=== PATIENT | male | born 1985 | race Caucasian/White ===

== ENCOUNTER 2020-01-07 10:09 | Emergency (ER) | payer SELFPAY ==
--- NOTE | 2020-01-07 10:30 | TELE ---
HPI Do you have fever,cough or shortness of breath?: No - General Reason For Visit: COVID 19 TESTING History Source: Patient Exam Limitations: No Limitations - History of Present Illness 01/07/20 10:25 Patient is a 34-year-old male with no past medical history who participated in a virtual urgent care visit for routine COVID testing. He states he would like to be tested for his own peace of mind. He denies any symptoms at this time. He denies any recent travel outside of the [facility] within the last 30 days or outside of [facility] within the last 15 days. The patient denies any medical history of allergies to medications. Of note: This virtual urgent care visit was done via audio only as the patient was having difficulty accessing the video portion of the visit. Past History - Medical History Allergies/Adverse Reactions: Allergies Allergy/AdvReac Type Severity Reaction Status Date / Time No Known Allergies Allergy Verified 04/04/15 12:54 Home Medications: Ambulatory Orders Acetaminophen/Caffeine/Butalb [Fioricet -] 1 tab PO Q4H PRN #15 tablet 04/04/15 Naproxen Sodium [Aleve] 660 mg PO BID 04/04/15 - Psycho-Social/Smoking History Smoking History: Current every day smoker Have you smoked in the past 12 months: Yes Number of Cigarettes Smoked Daily: 2 'Breaking Loose' booklet given: 04/04/15 Review of Systems - Review of Systems Comments:: 01/07/20 10:27 - Review of Systems Able to Perform ROS?: Yes Constitutional: No: Fever, Chills, Loss of Appetite, Night Sweats, Weakness; positive: Routine COVID testing HEENTM: No: Eye Pain, Vision changes, Ear Pain, Throat Pain, Throat Swelling, Mouth Pain, Difficulty Swallowing Respiratory: No: Cough, Shortness of Breath, Wheezing, Sputum Production Cardiac (ROS): No: Chest Pain, Chest Tightness, Palpitations, Irregular Heart Beat, Edema ABD/GI: No: Nausea, Vomiting, Abdominal Pain, Diarrhea : No Dysuria, No Hematuria, No Frequency, No Urgency Musculoskeletal: No: Muscle Pain, Back Pain, Joint Pain, Muscle Weakness, Neck Pain Integumentary: No: Lesions, Rash Neurological: No: Headache, Numbness, Tingling, Weakness, Speech Difficulties *Physical Exam - Physical Exam 01/07/20 10:28 - Physical Exam HEENT: Normal Voice, Hearing Grossly Normal Respiratory/Chest: Speaking in full and complete sentences Neurologic: Fully Oriented, Alert, Normal Mood/Affect, Normal Response - Medical Decision Making 01/07/20 10:28 Assessment: Patient is a 34-year-old male who participated in a virtual urgent care visit for routine COVID testing. Plan: -COVID swab ordered -COVID counseling given, isolation precautions reviewed -Patient is already at the [facility] waiting to be swabbed -Patient understands and agrees with this treatment plan Discharge Diagnosis at time of Disposition: Counseled about COVID-19 virus infection - Referrals - Patient Instructions Discharge Instructions: [facility]-Coronavirus Instructions, [facility] COVID-19 Isolation Protocol Additional Discharge Instructions: You were seen via a telehealth visit and tested for COVID today. You should follow isolation precautions as per [facility] guidelines. Thank you for participating in our telehealth medicine program. If you have any worsening symptoms such as high fever, shaking chills, profuse vomiting or any other worsening symptoms you should go to your local emergency department immediately or follow up with your primary care doctor immediately. If you become symptomatic: Take Tylenol 650 mg every 6 hours as needed for fever or pain. You may take Robitussin or other [id number] cough syrup. Follow the dosing instructions on the bottle. Warm tea, honey, and salt water gargles may help your symptoms. Please take precautions and self quarantine for 2 weeks and follow-up with your primary care doctor and the Department of Health. Return to the nearest emergency department for shortness of breath, difficulty breathing, chest pain, or if you have any changes in your symptoms. - Discharge Disposition: HOME
== END 2020-01-07 10:30 | disposition home or self-care (01) ==
LOC: JVIRT 10:09
DX: Z11.59 Encounter for screening for other viral diseases (principal)
CPT/HCPCS: Q3014-GT; U0003

== ENCOUNTER 2020-01-14 13:12 | Emergency (ER) | payer SELFPAY ==
--- NOTE | 2020-01-14 13:18 | TELE ---
HPI Do you have fever,cough or shortness of breath?: No - General Reason For Visit: COVID 19 TESTING History Source: Patient Past History - Medical History Allergies/Adverse Reactions: Allergies Allergy/AdvReac Type Severity Reaction Status Date / Time No Known Allergies Allergy Verified 04/04/15 12:54 Home Medications: Ambulatory Orders Acetaminophen/Caffeine/Butalb [Fioricet -] 1 tab PO Q4H PRN #15 tablet 04/04/15 Naproxen Sodium [Aleve] 660 mg PO BID 04/04/15 - Psycho-Social/Smoking History Smoking History: Current every day smoker Have you smoked in the past 12 months: Yes Number of Cigarettes Smoked Daily: 2 'Breaking Loose' booklet given: 04/04/15 Review of Systems - Review of Systems Constitutional: No: Fever Respiratory: No: Cough *Physical Exam - Physical Exam Respiratory/Chest: negative: Respiratory Distress Discharge Diagnosis at time of Disposition: Encounter for screening laboratory testing for COVID-19 virus - Referrals Follow-up Referral(s): Mariluz Bae MD [Primary Care Provider] - - Patient Instructions - Discharge Disposition: HOME Condition at time of Disposition: Stable
== END 2020-01-14 13:18 | disposition home or self-care (01) ==
LOC: JVIRT 13:12
DX: Z11.59 Encounter for screening for other viral diseases (principal)
CPT/HCPCS: Q3014-GT; U0003